=== PATIENT | male | born 1975 | race Caucasian/White ===

== ENCOUNTER 2016-09-02 00:31 | Emergency (ER) | payer OTHER | END 2016-09-02 01:35 | disposition home or self-care (01) | LOC: ER 00:31 | DX: R42 Dizziness and giddiness (principal); S49.92XA Unspecified injury of left shoulder and upper arm, initial encounter; X50.9XXA Other and unspecified overexertion or strenuous movements or postures, initial encounter; F17.210 Nicotine dependence, cigarettes, uncomplicated; Z88.2 Allergy status to sulfonamides; Z79.899 Other long term (current) drug therapy | CPT/HCPCS: 73030; 93005; 99284-25 ==